=== PATIENT | female | born 1960 | race Caucasian/White ===

== ENCOUNTER 2018-07-13 15:51 | Emergency (ER) | payer BC ==
[2018-07-13] MEDS ORDERED: ACETAMINOPHEN 325 MG TABLET PO ONE (16:09)
[2018-07-13] MEDS ORDERED: NICARDIPINE HCL RTU, ISO-OS 20 MG/200 ML RTUINJ IV PRN ×2 (16:12→16:26)
[2018-07-13 16:39] LABS: ABSOLUTE EOSINOPHILS # (AUTO) 0.1 10^3/uL (0.0-0.6); ABSOLUTE LYMPHOCYTES (AUTO) 1.4 10^3/uL (0.5-4.7); ABSOLUTE MONOCYTES (AUTO) 0.5 10^3/uL (0.1-1.4); ABSOLUTE NEUT (AUTO) 4.3 10^3/uL (1.7-8.2); BASOPHILS % (AUTO) 0.4 % (0-2); EOSINOPHILS % (AUTO) 2.1 % (0-6); HEMOGLOBIN 14.8 g/dL (12.0-15.5); LYMPHOCYTES % (AUTO) 22.4 % (13-45); MEAN CORPUSCULAR HEMOGLOBIN 31.4 pg (27.0-33.4); MEAN CORPUSCULAR HGB CONC 34.5 g/dL (32.0-36.0); MEAN CORPUSCULAR VOLUME 91 fl (80-97); MONOCYTES % (AUTO) 7.5 % (3-13); PLATELET COUNT 205 10^3/uL (150-450); RED BLOOD COUNT 4.73 10^6/uL (3.72-5.28); RED CELL DISTRIBUTION WIDTH 13.5 % (11.5-14.0); SEGMENTED NEUTROPHILS % (AUTO) 67.6 % (42-78); TOTAL CELLS COUNTED % (AUTO) 100 %; WHITE BLOOD COUNT 6.3 10^3/uL (4.0-10.5)
[2018-07-13 16:47] LABS: PROTHROMBIN TIME 12.6 SEC (11.4-15.4)
[2018-07-13 16:51] LABS: ALANINE AMINOTRANSFERASE 67 U/L (9-52); ALBUMIN 4.5 g/dL (3.5-5.0); ALKALINE PHOSPHATASE 73 U/L (38-126); ANION GAP 10 (5-19); ASPARTATE AMINO TRANSFERASE 55 U/L (14-36); BILIRUBIN,DIRECT 0.2 mg/dL (0.0-0.4); BILIRUBIN,TOTAL 0.3 mg/dL (0.2-1.3); BLOOD UREA NITROGEN 10 mg/dL (7-20); CALCIUM 9.5 mg/dL (8.4-10.2); CARBON DIOXIDE 24 mmol/L (22-30); CHLORIDE 108 mmol/L (98-107); GLUCOSE 108 mg/dL (75-110); POTASSIUM 4.6 mmol/L (3.6-5.0); SODIUM 142.1 mmol/L (137-145)
--- NOTE | 2018-07-13 16:52 | RADIOLOGY REPORT (SQ) ---
EXAM DESCRIPTION: CT HEAD WITHOUT COMPLETED DATE/TIME: 07/13/2018 4:27 pm REASON FOR STUDY: Sudden onset severe headache, 2016 [facility] COMPARISON: None. TECHNIQUE: Axial images acquired through the brain without intravenous contrast. Images reviewed wi th bone, brain and subdural windows. Additional sagittal and coronal reconstructions were generated. Images stored on PACS. All CT scanners at this facility use dose modulation, iterative reconstruction, and/or weight based d osing when appropriate to reduce radiation dose to as low as reasonably achievable (ALARA). [facility]: Dose Right [facility]: CareDose [facility]: Dose Right [facility]: Teradose 4D [facility]: [employer] RADIATION DOSE: CT Rad equipment meets quality standard of care and radiation dose reduction techniq ues were employed. CTDIvol: 53.2 mGy. DLP: 1070 mGy-cm. mGy. LIMITATIONS: None. FINDINGS: VENTRICLES: Normal size and contour. CEREBRUM: No masses. No hemorrhage. No midline shift. No evidence for acute infarction. Normal gra y/white matter differentiation. No areas of low density in the white matter. CEREBELLUM: No masses. No hemorrhage. No alteration of density. No evidence for acute infarction. EXTRAAXIAL SPACES: No fluid collections. No masses. ORBITS AND GLOBE: No intra- or extraconal masses. Normal contour of globe without masses. CALVARIUM: No fracture. PARANASAL SINUSES: Mucosal thickening of the right maxillary sinus. SOFT TISSUES: No mass or hematoma. OTHER: No other significant finding. IMPRESSION: 1. No acute intracranial pathology. No noncontrast CT findings to explain headache. 2. Right maxillary sinus disease. Correlate for evidence of sinusitis. EVIDENCE OF ACUTE STROKE: NO. COMMENT: Quality ID # [id number]: Final reports with documentation of one or more dose reduction techniques (e.g., Automated exposure control, adjustment of the mA and/or kV according to patient size, use of iterative reconstruction technique) TECHNICAL DOCUMENTATION: JOB ID: [id number] [employer]- All Rights Reserved Reading location - IP/workstation name: [email or web address]
[2018-07-13] MEDS ORDERED: DIPHENHYDRAMINE HCL 50 MG/ML VIAL IV ONE ×2 (17:02→17:53)
[2018-07-13] MEDS ORDERED: NORMAL SALINE 1000 ML 1,000 ML IV ONE (17:02)
[2018-07-13] MEDS ORDERED: PROCHLORPERAZINE EDISYLATE INJ 10 MG/2 ML VIAL IV ONE ×2 (17:02→17:51)
[2018-07-13] MEDS ORDERED: ONDANSETRON HCL INJ/PF 4 MG/2 ML SDV IV ONE (17:51)
--- NOTE | 2018-07-13 20:35 | RADIOLOGY REPORT (SQ) ---
EXAM DESCRIPTION: CT HEAD WITHOUT IV CONTRAST COMPLETED DATE/TME: 07/13/2018 20:07 CLINICAL HISTORY: 58 years, Female, follow up to exclude subarachnoid hemorrhage This exam was performed according to our departmental dose-optimization program which includes automated exposure control, adjustment of the mA and/or kVp according to patient size and/or use of iterative reconstruction technique where applicable. FINDINGS: No acute intracranial hemorrhage, mass effect or midline shift. No extra-axial fluid collections. Ventricles and subarachnoid spaces are preserved. Arciniega-white matter differentiation is preserved. Visualized paranasal sinuses and the mastoid air cells demonstrate opacification of the left maxillary sinus. The mastoid air cells are clear. The skull is intact. IMPRESSION: No acute intracranial hemorrhage.
[2018-07-13 20:53] VITALS: BP 132/83
--- NOTE | 2018-07-13 21:54 | ER Document Report ---
Entered by CINDY ESPARZA SCRIBE 07/13/18 5031 Acting as scribe for:RAMÓN BATISTA MD ED General - General Stated Complaint: HEADACHE Time Seen by Provider: 07/13/18 16:00 Primary Care Provider: PEREZ MEDINA [NO ARMANDO MD] - Follow up as needed Mode of Arrival: Ambulatory Information source: Patient Notes: Patient is a 58 year old female presenting to the emergency department complaining of a sudden onset headache onset around 1440 today. Patient states she woke up from her usual nap and proceeded to have a severe headache, nausea, dry heaving, double vision and photophobia. Patient states this is the 2nd worst headache of her life. She states when she had her 1st worst headache she was diagnosed with a subarachnoid hemorrhage. She states her headache located globally and is exacerbated with any kind of movement. Patient states she still has double vision and nausea although it is not has severe as before. Patient states in 2016 she was admitted to [facility] in [place], [place] for a subarachnoid hemorrhage. She reports she had a bur hole placed in a tube put in to drain fluid. I suspect this was a ventriculostomy drain. Patient states a bleeding source was never found, but she describes them telling her the source may have been at a bifurcation of vessels around the optic chiasm region. - Related Data Allergies/Adverse Reactions: Penicillins Allergy (Verified 07/13/18 16:33) Past Medical History - General Information source: Patient - Social History Smoking Status: Never Smoker Cigarette use (# per day): No Chew tobacco use (# tins/day): No Smoking Education Provided: No Frequency of alcohol use: None Family History: Reviewed & Not Pertinent Review of Systems - Review of Systems Constitutional: No symptoms reported EENT: See HPI, Blurred vision Cardiovascular: No symptoms reported Respiratory: No symptoms reported Gastrointestinal: See HPI, Nausea Genitourinary: No symptoms reported Female Genitourinary: No symptoms reported Musculoskeletal: No symptoms reported Skin: No symptoms reported Hematologic/Lymphatic: No symptoms reported Neurological/Psychological: See HPI, Headaches Physical Exam - Vital signs Vitals: Resp BP Pulse Ox 11 L 151/87 H 96 07/13/18 16:08 07/13/18 16:08 07/13/18 16:08 - Notes Notes: GENERAL: Alert, appears uncomfortable, interacts well. No acute distress. HEAD: Normocephalic, atraumatic. Complains of pain with chin to chest to test testing. EYES: Pupils equal, round, and reactive to light. Extraocular movements intact. ENT: Oral mucosa moist, tongue midline. NECK: Full range of motion. Supple. Trachea midline. LUNGS: Clear to auscultation bilaterally, no wheezes, rales, or rhonchi. No respiratory distress. HEART: Regular rate and rhythm. No murmurs, gallops, or rubs. Blood pressure is 156 systolic on monitor. ABDOMEN: Soft, non-tender. Non-distended. Bowel sounds present in all 4 quadrants. EXTREMITIES: Moves all 4 extremities spontaneously. NEUROLOGICAL: Alert and oriented x3. Normal speech. PSYCH: Normal affect, normal mood. SKIN: Warm, dry, normal turgor. No rashes or lesions noted. Course - Re-evaluation Re-evalutation: 07/13/18 17:52 About 30 minutes after the Compazine 5 mg and Benadryl 25 mg IV, patient states the headache is better but is still present. She also reports she is quite nauseous and is afraid to fall asleep because he might throw up. She will be given another 5 mg Compazine IV, and a drill 25 mg IV and Zofran 8 mg IV. 07/13/18 18:59 At this time the patient states her headache is now about a 1. She states she really wants to go home because she is hungry and wants to eat. We will continue to monitor her, and probably repeat the scan to be absolutely certain there is no evidence of SAH. 07/13/18 20:[address] scan of the head approximately 4 hours after the first scan remains negative for bleeding or any other abnormality. 07/13/18 20:46 Reevaluation of the patient shows she complains that she still has a little bit of a headache, it is now more in the left retro-orbital area. She thinks it is due to being hungry. Palpating the posterior cervical muscles shows that they are quite tender, especially on the left side. There is also tenderness at the nuchal ridge and into the occipital scalp muscles. I have reassured the patient that the posterior cervical and scalp muscle tenderness does not indicate an intracranial issue, but confirms suspicions that this is probably a muscle contraction headache with some migraine component. - Vital Signs Vital signs: Temp Pulse Resp BP Pulse Ox 22 H 119/66 94 07/13/18 18:01 07/13/18 18:01 07/13/18 18:01 - Laboratory Result Diagrams: 07/13/18 16:28 07/13/18 16:28 Laboratory results interpreted by me: 07/13/18 16:28 Chloride 108 H AST 55 H ALT 67 H Discharge - Discharge Clinical Impression: Headache Qualifiers: Headache type: unspecified Headache chronicity pattern: acute headache Intractability: not intractable Qualified Code(s): R51 - Headache Condition: Stable Disposition: HOME, SELF-CARE Additional Instructions: Headache: The physician does not feel that the headache you are experiencing has a serious underlying cause. Most headaches are due to emotional stress, with resultant muscle tension (tension headache). Occasionally, headaches are secondary to changes in the blood vessels of the scalp (vascular headache and migraine headache). Sometimes, a headache is the first symptom of another developing illness, such as a viral infection. You have no evidence of stroke, bleeding, meningitis, or other serious cause of your headache. The treatment of headaches varies with the severity and cause of the pain. Not all headaches need pain shots. In fact, there is evidence that using narcotics for headaches may make them worse in the long run. The physician will determine the therapy that's in your best interest. If you develop a fever, if the headache is different from any you've previously experienced, or if the headache progressively worsens, then call your physician at once or go to the emergency room. Your physical exam suggests that this is a muscle contraction headache with possible migraine component. Serial CT scans of the brain do not show any evidence of bleeding. Rest in a cool, dark, quiet room. Take Tylenol and ibuprofen for your headache. Follow-up with your primary care provider tomorrow for recheck if not feeling better. RETURN TO THE EMERGENCY ROOM IF ANY NEW OR WORSENING SYMPTOMS. I personally performed the services described in the documentation, reviewed and edited the documentation which was dictated to the scribe in my presence, and it accurately records my words and actions.
== END 2018-07-13 20:55 | disposition home or self-care (01) ==
LOC: ER 15:51
DX: R51 Headache (principal); R11.0 Nausea; H53.149 Visual discomfort, unspecified; Z88.0 Allergy status to penicillin
CPT/HCPCS: 96376; 99284; 96361; 96374; 96375; 36415; 85025; 85610; 80053; 70450; J1200; J0780; J2405; J7030